=== PATIENT | female | born 1965 | race Caucasian/White ===

== ENCOUNTER → 2016-05-17 | Outpatient (CLI) | payer OTHER ==
[~2016-05-17] VITALS: Ht 172.7 cm; Wt 62.9 kg
[~2016-05-17] MED LIST: ALBUAER2 INH; BUSP-8 PO; CEFAZOLIN 2000 MG/60 ML D5W 50 ML IV SCH; CHECK SCOPOLAMINE PATCH PLACEMENT SCH; CHOL2000 PO; DIPH25CA5 PO; FAMO20TA11 PO; FLVHFA44 INH; IBUP-1050 PO; LACTATED RINGER'S 1000ML 1,000 ML IV SCH; MISCCAP80 PO; MONT1TAB3 PO; MULT-506 PO; PRAM0.129 PO; PSYL0.524 PO; RANI300T2 PO; ROPI1TAB PO; SCOPOLAMINE 1.5 MG TDSY TD SCH; TRET-55 TOP
[2016-05-17 11:52] VITALS: Ht 172.7 cm; Wt 62.9 kg
--- NOTE | 2016-05-17 12:33 | PAT Medication Instructions ---
Service Date May 17, 2016. Current Home Medication List Albuterol (Ventolin), 2 PUFFS INH Q4-6H PRN for Wheezing Buspirone Hcl (Buspirone Hcl), 10 MG PO BID PRN for RN Cholecalciferol (Vitamin D3), 1 CAP PO QPM Diphenhydramine Hcl (Benadryl), 25-50 MG PO PRN PRN for ALLERGIES Fluticasone Propionate (Flovent Hfa), 2 PUFFS INH BID Ibuprofen (Advil), 200-400 MG PO Q4H PRN for PAIN/CRAMPS Multivitamin (Multivitamin), 1 TAB PO HS Probiotic Product (Probiotic), 1 TAB PO QAM Psyllium (Metamucil), 1 DOSE PO PRN Ranitidine (Zantac), 300 MG PO QPM Ropinirole (Requip), 1 MG PO BID Tretinoin (Tretinoin), 1 APPLN TOP PRN Medication Instructions For Your Scheduled Surgery - Hold the following medications evening prior to and morning of surgery: Ropinirole (Requip), 1 MG PO BID - Hold the following medications the morning of surgery: Psyllium (Metamucil), 1 DOSE PO PRN Probiotic Product (Probiotic), 1 TAB PO QAM Diphenhydramine Hcl (Benadryl), 25-50 MG PO PRN PRN for ALLERGIES Tretinoin (Tretinoin), 1 APPLN TOP PRN Ibuprofen (Advil), 200-400 MG PO Q4H PRN for PAIN/CRAMPS (not told to stop by surgeon) - Take the following medications the morning of surgery with a sip of water: Fluticasone Propionate (Flovent Hfa), 2 PUFFS INH BID Buspirone Hcl (Buspirone Hcl), 10 MG PO BID PRN for RN Albuterol (Ventolin), 2 PUFFS INH Q4-6H PRN for Wheezing (bring with you to hospital on day surgery) - Take the following medications as scheduled the night before surgery: Ranitidine (Zantac), 300 MG PO QPM Multivitamin (Multivitamin), 1 TAB PO HS Fluticasone Propionate (Flovent Hfa), 2 PUFFS INH BID Diphenhydramine Hcl (Benadryl), 25-50 MG PO PRN PRN for ALLERGIES (if needed) Buspirone Hcl (Buspirone Hcl), 10 MG PO BID PRN for RN (if needed) Cholecalciferol (Vitamin D3), 1 CAP PO QPM Albuterol (Ventolin), 2 PUFFS INH Q4-6H PRN for Wheezing (if needed) If you have any questions please call us at [phone] or [phone] ( [place]) or [phone]
[2016-05-17 13:27] LABS: BASO % 0.4 %; BASO ABS # 0.02 K/uL (0-0.2); COMPLETE YES; EOS % 4.4 %; HEMATOCRIT 37.7 % (37-47); IG% 0.2 %; LYMPH % 37.4 %; LYMPH ABS # 1.71 K/uL (1.2-3.4); MEAN CORPUSCULAR HEMOGLOBIN 30.5 pg (25-34); MEAN PLATELET VOLUME 9.8 fL (7.4-10.4); NEUT % 50.6 %; PLATELET COUNT 277 K/uL (130-400); RED BLOOD COUNT 4.19 M/uL (4.2-5.4); WHITE BLOOD COUNT 4.57 K/uL (4.8-10.8)
[2016-05-17 14:05] LABS: BUN/CREATININE RATIO 14.8 (10-20); CALCIUM 9.2 mg/dl (8.5-10.1); CREATININE 0.79 mg/dl (0.60-1.20); POTASSIUM 3.6 mmol/L (3.5-5.1)
== END | disposition home or self-care (01) ==
LOC: C.LAB 08:00 → EDSTATUS 06-05 10:18
PROVIDERS: ATTEND Obstetrics & Gynecology
DX: Z01.812 Encounter for preprocedural laboratory examination (principal)

== ENCOUNTER → 2016-05-17 | Outpatient (CLI) | payer OTHER ==
[~2016-05-17] MED LIST changes: +BND25 PO; -CEFAZOLIN 2000 MG/60 ML D5W 50 ML IV SCH; -CHECK SCOPOLAMINE PATCH PLACEMENT SCH; -DIPH25CA5 PO; -LACTATED RINGER'S 1000ML 1,000 ML IV SCH; -SCOPOLAMINE 1.5 MG TDSY TD SCH; -TRET-55 TOP; +TRET0.0522 TOP
[2016-05-17 14:15] LABS: CHOLESTEROL/HDL RATIO 2.2; FERRITIN 14.3 ng/ml (8.0-388.0); THYROID STIMULATING HORMONE 1.28 uIu/ml (0.300-4.500)
== END | disposition home or self-care (01) ==
LOC: C.LAB 12:21
PROVIDERS: ATTEND Internal Medicine Geriatric Medicine
DX: G25.81 Restless legs syndrome (principal); E78.00 Pure hypercholesterolemia, unspecified; E55.9 Vitamin D deficiency, unspecified

== ENCOUNTER → 2016-08-07 | Outpatient (CLI) | payer OTHER ==
[~2016-08-07] MED LIST changes: -BND25 PO; +DIPH25CA5 PO; -FAMO20TA11 PO; -MONT1TAB3 PO; -PRAM0.129 PO; +TRET-55 TOP; -TRET0.0522 TOP
--- NOTE | 2016-08-07 16:00 | DIAGNOSTIC IMAGING REPORT ---
CHEST 2 VIEWS ROUTINE CLINICAL HISTORY: Fever, cough, headache COMPARISON STUDY: 04/09/2014 FINDINGS: There is mild chronic apical pleural thickening. The heart is normal in size. There is no failure. There is no focal pulmonary consolidation. There are no pleural effusions.[ IMPRESSION: No active disease in the chest. Electronically signed by: Leon Alexandra M.D. 08/07/2016 3:58 PM Dictated Date/Time: 08/07/2016 3:58 PM
== END | disposition home or self-care (01) ==
LOC: C.RAD 15:12
PROVIDERS: ATTEND Physician Assistant Medical
DX: R50.9 Fever, unspecified (principal)

== ENCOUNTER → 2016-11-03 | Outpatient (CLI) | payer OTHER ==
[~2016-11-03] MED LIST changes: +BND25 PO; -DIPH25CA5 PO; -TRET-55 TOP; +TRET0.0522 TOP
== END | disposition home or self-care (01) ==
LOC: C.PAPS 14:05
PROVIDERS: ATTEND Obstetrics & Gynecology
DX: Z01.419 Encounter for gynecological examination (general) (routine) without abnormal findings (principal)

== ENCOUNTER → 2016-11-16 | Outpatient (CLI) | payer OTHER ==
--- NOTE | 2016-11-16 16:01 | MAMMOGRAPHY REPORT ---
BILATERAL DIGITAL SCREENING MAMMOGRAM TOMOSYNTHESIS WITH CAD: 11/16/2016 CLINICAL HISTORY: Routine screening. Patient has no complaints. TECHNIQUE: Breast tomosynthesis in addition to standard 2D mammography was performed. Current study was also evaluated with a Computer Aided Detection (CAD) system. COMPARISON: Comparison is made to exams dated: 10/13/2015 mammogram, 09/17/2014 mammogram, 09/16/2013 m ammogram, 10/06/2011 ultrasound, 10/06/2011 mammogram, and 01/23/2011 mammogram - [facility]. BREAST COMPOSITION: The tissue of both breasts is heterogeneously dense, which may obscure small mas ses. FINDINGS: No suspicious masses, calcifications, or areas of architectural distortion are noted in ei ther breast. There has been no significant interval change compared to prior exams. IMPRESSION: ACR BI-RADS CATEGORY 1: NEGATIVE There is no mammographic evidence of malignancy. A 1 year screening mammogram is recommended. The pa tient will receive written notification of the results. Approximately 10% of breast cancers are not detected with mammography. A negative mammographic report should not delay biopsy if a clinically suggestive mass is present. Juanita Bacon M.D. ah/:11/16/2016 15:36:24 Insurance Defense Attorney: Liliane LLOYD(R)(M), [facility] letter sent: Normal 1/2 BI-RADS Code: ACR BI-RADS Category 1: Negative
== END | disposition home or self-care (01) ==
LOC: C.MAMM 12:29
PROVIDERS: ATTEND Obstetrics & Gynecology
DX: Z12.31 Encounter for screening mammogram for malignant neoplasm of breast (principal)

== ENCOUNTER → 2016-12-01 | Outpatient (CLI) | payer OTHER ==
--- NOTE | 2016-12-01 09:57 | DIAGNOSTIC IMAGING REPORT ---
ABDOMEN LIMITED (US) HISTORY: 51 years-old Female R10.33 Abdominal pain, acute, periumbilical COMPARISON: None available TECHNIQUE: Multiple real-time sonographic images of the superficial tissues of the anterior abdominal wall in the region of the umbilicus were obtained assessing grayscale appearance. FINDINGS: There is a small fat-containing periumbilical hernia which is reducible. No associated bowel communicates with the hernia defect. The patient reportedly had a focal area of pain left of the umbilicus which demonstrates no focal abnormality or collection. IMPRESSION: Small reducible fat-containing periumbilical hernia. The above report was generated using voice recognition software. It may contain grammatical, syntax or spelling errors. Electronically signed by: Adi Owen M.D. 12/01/2016 9:55 AM Dictated Date/Time: 12/01/2016 9:51 AM
== END | disposition home or self-care (01) ==
LOC: C.ULTRBC 09:23
PROVIDERS: ATTEND Physician Assistant
DX: R10.33 Periumbilical pain (principal); K42.9 Umbilical hernia without obstruction or gangrene

== ENCOUNTER → 2017-01-24 | Outpatient (CLI) | payer OTHER | END | disposition home or self-care (01) | LOC: C.LAB 17:17 | PROVIDERS: ATTEND Physician Assistant Medical | DX: R50.9 Fever, unspecified (principal) ==

== ENCOUNTER → 2017-02-16 | Outpatient (CLI) | payer OTHER ==
[~2017-02-16] MED LIST changes: -BND25 PO; +DIPH25CA5 PO; +TRET-55 TOP; -TRET0.0522 TOP
[2017-02-16 13:15] LABS: BASO % 0.5 %; BASO ABS # 0.03 K/uL (0-0.2); COMPLETE YES; HEMATOCRIT 35.8 % (37-47); LYMPH % 38.8 %; LYMPH ABS # 2.24 K/uL (1.2-3.4); MEAN CELL VOLUME 92.5 fL (80-100); MEAN CORPUSCULAR HEMOGLOBIN 30.5 pg (25-34); MEAN PLATELET VOLUME 10.3 fL (7.4-10.4); MONO % 6.7 %; PLATELET COUNT 249 K/uL (130-400); RED BLOOD COUNT 3.87 M/uL (4.2-5.4); WHITE BLOOD COUNT 5.78 K/uL (4.8-10.8)
[2017-02-16 13:44] LABS: ALT/SGPT 21 U/L (12-78); AST/SGOT 11 U/L (15-37); BLOOD UREA NITROGEN 12 mg/dl (7-18); BUN/CREATININE RATIO 19.7 (10-20); CALCIUM 8.3 mg/dl (8.5-10.1); CARBON DIOXIDE 27 mmol/L (21-32); CHLORIDE 108 mmol/L (98-107); CREATININE 0.62 mg/dl (0.60-1.20); GLUCOSE 104 mg/dl (70-99); POTASSIUM 3.4 mmol/L (3.5-5.1); SODIUM 143 mmol/L (136-145)
[2017-02-16 13:55] LABS: ALB/GLOB RATIO 1.1 (0.9-2); ALKALINE PHOSPHATASE 67 U/L (45-117)
== END | disposition home or self-care (01) ==
LOC: C.LAB1850 11:36
PROVIDERS: ATTEND Physician Assistant
DX: J02.9 Acute pharyngitis, unspecified (principal)

== ENCOUNTER → 2017-02-19 | Outpatient (CLI) | payer OTHER ==
--- NOTE | 2017-02-19 10:13 | DIAGNOSTIC IMAGING REPORT ---
ULTRASOUND OF THE THYROID GLAND CLINICAL HISTORY: Neck tenderness. Flulike symptoms. COMPARISON STUDY: No priors. TECHNIQUE: Real-time, grayscale, and color flow sonography of the thyroid gland is performed utilizing a high-frequency linear transducer. Images are reviewed in the transverse and longitudinal planes. FINDINGS: Right lobe: The right lobe of the thyroid gland is normal in size and homogeneous in echotexture, measuring 4.1 x 1.2 x 1.6 cm. Left lobe: The left lobe of the thyroid gland is normal in size and homogeneous in echotexture, measuring 3.5 x 1.5 x 1.3 cm. Isthmus: The thyroid isthmus is normal in appearance and measures 0.3 cm in AP diameter. IMPRESSION: Unremarkable sonographic assessment of the thyroid gland. Electronically signed by: Navi Lange M.D. 02/19/2017 10:11 AM Dictated Date/Time: 02/19/2017 10:11 AM
== END | disposition home or self-care (01) ==
LOC: C.ULTR 09:21
PROVIDERS: ATTEND Physician Assistant
DX: R68.89 Other general symptoms and signs (principal)

== ENCOUNTER → 2017-06-08 | Outpatient (CLI) | payer OTHER ==
[2017-06-08 16:44] LABS: HEMATOCRIT 39.1 % (37-47); HEMOGLOBIN 12.9 g/dL (12.0-16.0); MEAN CELL VOLUME 92.2 fL (80-100); MEAN CORPUSCULAR HEMOGLOBIN 30.4 pg (25-34); MEAN PLATELET VOLUME 10.2 fL (7.4-10.4); PLATELET COUNT 236 K/uL (130-400); RED CELL DISTRIBUTION WIDTH CV 12.1 % (11.5-14.5); RED CELL DISTRIBUTION WIDTH SD 41.2 fL (36.4-46.3); WHITE BLOOD COUNT 4.23 K/uL (4.8-10.8)
[2017-06-08 16:55] LABS: ALBUMIN 4.1 gm/dl (3.4-5.0); ALT/SGPT 17 U/L (12-78); AST/SGOT 12 U/L (15-37); BLOOD UREA NITROGEN 19 mg/dl (7-18); CALCIUM 9.1 mg/dl (8.5-10.1); CARBON DIOXIDE 29 mmol/L (21-32); CREATININE 0.82 mg/dl (0.60-1.20); GLUCOSE 91 mg/dl (70-99); POTASSIUM 3.8 mmol/L (3.5-5.1); SODIUM 140 mmol/L (136-145)
[2017-06-08 17:05] LABS: ALKALINE PHOSPHATASE 58 U/L (45-117); CHOLESTEROL 237 mg/dl (0-200); LDL CHOLESTEROL CALCULATED 129 mg/dl; TOTAL PROTEIN 7.5 gm/dl (6.4-8.2)
== END | disposition home or self-care (01) ==
LOC: C.LABBC 13:32
PROVIDERS: ATTEND Internal Medicine
DX: Z00.00 Encounter for general adult medical examination without abnormal findings (principal); E23.7 Disorder of pituitary gland, unspecified; R94.6 Abnormal results of thyroid function studies; E55.9 Vitamin D deficiency, unspecified

== ENCOUNTER → 2017-06-25 | Outpatient (CLI) | payer OTHER ==
--- NOTE | 2017-06-25 10:12 | DIAGNOSTIC IMAGING REPORT ---
R HIP UNILATERAL 2 VIEWS HISTORY: 51 years-old Female M25.551 Posterior pain of hip, [id number] acute posterior right hip pain COMPARISON: Radiographs of the SI joints 01/14/2016 TECHNIQUE: 2 views of the right hip FINDINGS: No acute fracture, subluxation or significant degenerative changes. Imaged right hemipelvis appears intact. IMPRESSION: No acute fracture. The above report was generated using voice recognition software. It may contain grammatical, syntax or spelling errors. Electronically signed by: Adi Owen M.D. 06/25/2017 10:10 AM Dictated Date/Time: 06/25/2017 10:09 AM
== END | disposition home or self-care (01) ==
LOC: C.RADBC 09:48
PROVIDERS: ATTEND Physician Assistant Medical
DX: M25.551 Pain in right hip (principal); R50.9 Fever, unspecified; R51 Headache; E23.7 Disorder of pituitary gland, unspecified

== ENCOUNTER → 2017-08-10 | Outpatient (CLI) | payer OTHER ==
--- NOTE | 2017-08-10 16:42 | DIAGNOSTIC IMAGING REPORT ---
R FOOT MIN 3 VIEWS ROUTINE CLINICAL HISTORY: M79.671 Pain of right [id number] pain COMPARISON: None. DISCUSSION: The bones and joint spaces appear intact. There is no evidence of fracture, dislocation or bony disease. There is no evidence for soft tissue swelling.. Small heel spur IMPRESSION: Very small heel spur. Otherwise negative study. The above report was generated using voice recognition software. It may contain grammatical, syntax or spelling errors. Electronically signed by: Braxton Peralta M.D. 08/10/2017 4:41 PM Dictated Date/Time: 08/10/2017 4:39 PM
== END | disposition home or self-care (01) ==
LOC: C.RADBC 16:17
PROVIDERS: ATTEND Nurse Practitioner Adult Health
DX: M79.671 Pain in right foot (principal); M77.31 Calcaneal spur, right foot

== ENCOUNTER → 2017-11-19 | Outpatient (CLI) | payer OTHER ==
--- NOTE | 2017-11-20 15:23 | MAMMOGRAPHY REPORT ---
BILATERAL DIGITAL SCREENING MAMMOGRAM TOMOSYNTHESIS WITH CAD: 11/19/2017 CLINICAL HISTORY: Routine screening. TECHNIQUE: The study was acquired using full field digital technology and interpreted from soft copy. Breast tomosynthesis in addition to standard 2D mammography was performed. Current study was also ev aluated with a Computer Aided Detection (CAD) system. COMPARISON: Comparison is made to exams dated: 11/16/2016 mammogram, 10/13/2015 mammogram, 09/17/2014 m ammogram, 09/16/2013 mammogram, 01/23/2011 mammogram, and 07/21/2009 mammogram - [facility]. BREAST COMPOSITION: The tissue of both breasts is heterogeneously dense, which may obscure small mass es. FINDINGS: There is a 5 mm nodular asymmetry and possible associated architectural distortion in the l ateral, posterior right breast best seen on CC tomosynthesis slice 28/61, for which additional spot c ompression tomosynthesis views and possible ultrasound are recommended. No other suspicious mass, architectural distortion or cluster of microcalcifications is seen bilatera lly. IMPRESSION: ACR BI-RADS CATEGORY 0: INCOMPLETE EVALUATION: NEED ADDITIONAL IMAGING EVALUATION The 5 mm nodular asymmetry and possible stated architectural distortion in the lateral, posterior rig ht breast needs additional evaluation. The patient will be called to schedule an appointment. Some breast cancers are not detected with mammography. A negative mammographic report should not brayan y biopsy if a clinically suggestive mass is present. Thelma Lopez M.D. ay/:11/19/2017 20:27:40 Career Services Officer: RT Yovani(R)(M), [facility] [address] letter sent: Addl Imaging 0 BI-RADS Code: ACR BI-RADS Category 0: Incomplete Evaluation: Need Additional Imaging Evaluation
== END | disposition home or self-care (01) ==
LOC: C.MAMM 13:20
PROVIDERS: ATTEND Obstetrics & Gynecology
DX: Z12.31 Encounter for screening mammogram for malignant neoplasm of breast (principal); N64.89 Other specified disorders of breast

== ENCOUNTER → 2017-11-29 | Outpatient (CLI) | payer OTHER | END | disposition home or self-care (01) | LOC: C.PAPS 16:49 | PROVIDERS: ATTEND Obstetrics & Gynecology | DX: Z12.4 Encounter for screening for malignant neoplasm of cervix (principal); Z11.51 Encounter for screening for human papillomavirus (HPV) ==

== ENCOUNTER → 2017-11-30 | Outpatient (CLI) | payer OTHER ==
--- NOTE | 2017-11-30 15:28 | MAMMOGRAPHY REPORT ---
UNILATERAL RIGHT DIGITAL DIAGNOSTIC MAMMOGRAM TOMOSYNTHESIS: 11/30/2017 CLINICAL HISTORY: Callback from screening mammogram for right breast asymmetry. TECHNIQUE: The study was acquired using full field digital technology and interpreted from soft copy. Breast tomosynthesis in addition to standard 2D mammography was performed. Spot compression right C C and MLO 2D and tomosynthesis images were obtained. COMPARISON: Comparison is made to exams dated: 11/19/2017 mammogram, 11/16/2016 mammogram, 10/13/2015 m ammogram, 09/17/2014 mammogram, 09/16/2013 mammogram, and 10/06/2011 ultrasound - [facility]. BREAST COMPOSITION: The tissue of right breast is heterogeneously dense, which may obscure small mass es. FINDINGS: The previously described asymmetry seen within the right lateral breast on the CC tomosynthesis image s effaces to a baseline appearance on additional spot compression views. Normal fibroglandular tissu e is seen in this region which appears similar to prior exams, without suspicious mass, architectural distortion, or other suspicious abnormality seen on the additional images. Findings are benign and compatible with normal fibroglandular tissue. IMPRESSION: ACR BI-RADS CATEGORY 2: BENIGN The right breast asymmetry effaces on additional spot compression views. Findings are benign and com patible with normal fibroglandular tissue. There is no mammographic evidence of malignancy. A 1 year screening mammogram is recommended.(12/01/2018) The patient has been verbally notified of the resul ts. Some breast cancers are not detected with mammography. A negative mammographic report should not brayan y biopsy if a clinically suggestive mass is present. Juanita Bacon M.D. ah/:11/30/2017 11:12:20 Employee Benefits Insurance Agent: Raisa Nunn, [facility] letter sent: Normal 1/2 BI-RADS Code: ACR BI-RADS Category 2: Benign
== END | disposition home or self-care (01) ==
LOC: C.MAMM 10:52
PROVIDERS: ATTEND Obstetrics & Gynecology
DX: R92.8 Other abnormal and inconclusive findings on diagnostic imaging of breast (principal)